=== PATIENT | female | born 1970 | race Caucasian/White ===

== ENCOUNTER 2017-01-22 15:56 | Inpatient (IN) | payer MEDICARE, MEDICAID ==
[~2017-01-22] VITALS: Ht 165.1 cm; Wt 66.4 kg
[~2017-01-22 15:56] MED LIST: BUSP5TAB20 PO; OLAN15TA2 PO
[2017-01-22 17:17] LABS: BASOPHILS % (AUTO) 0.6 % (0.0-2.0); EOSINOPHILS % (AUTO) 0.6 % (1.0-6.0); HEMATOCRIT 29.6 % (36-46); HEMOGLOBIN 9.8 g/dL (12.0-16.0); LYMPHOCYTES # (AUTO) 0.5 K/uL (1.0-4.8); LYMPHOCYTES % (AUTO) 11.7 % (22.0-44.0); MEAN CORPUSCULAR HEMOGLOBIN 25.7 pg (26.0-34.0); MEAN CORPUSCULAR HGB CONC 33.2 G/dL (31.0-37.0); MEAN CORPUSCULAR VOLUME 78 fL (80-100); MONOCYTES # (AUTO) 0.4 K/uL (0.1-1.0); MONOCYTES % (AUTO) 9.3 % (2.0-9.0); NEUTROPHILS # (AUTO) 3.4 K/uL (1.8-7.7); NEUTROPHILS % (AUTO) 77.8 % (40.0-70.0); PLATELET COUNT (AUTO) 392 K/uL (150-450); RED BLOOD CELL COUNT(AUTO) 3.81 MIL/uL (4.00-5.20); RED CELL DISTRIBUTION WIDTH 14.8 % (11.5-14.5); WHITE BLOOD COUNT (AUTO) 4.3 K/uL (4.5-11.0)
[2017-01-22 17:26] LABS: ANION GAP 9 mmol/L (8-16); CALCIUM, TOTAL 8.9 mg/dL (8.8-10.5); CARBON DIOXIDE 26 mmol/L (22-29); CHLORIDE 100 mmol/L (98-107); CREATININE 0.81 mg/dL (0.60-1.30); GLOMERULAR FILTR. RATE CALC > 60 mL/min (>60); POTASSIUM 3.5 mmol/L (3.5-5.1); SODIUM SERUM 135 mmol/L (136-145); UREA NITROGEN, BLOOD 4 mg/dL (7-18)
[2017-01-22 17:32] LABS: ALANINE AMINOTRANSFERASE 46 U/L (12-78); ALBUMIN 3.2 g/dL (3.4-5.0); ASPARTATE AMINOTRANSFERASE 51 U/L (15-37); BILIRUBIN,TOTAL 0.3 mg/dL (0.1-1.0); TOTAL PROTEIN, SERUM 7.3 g/dL (6.4-8.2)
[2017-01-22 17:37] LABS: GLUCOSE,POINT OF CARE 112 MG/DL (70-110)
[2017-01-22 18:04] LABS: RBC MORPHOLOGY COMMENT ABNORMAL RBC MORPH
[2017-01-22] MEDS ORDERED: ZOLPIDEM TARTRATE 10 MG TABLET PO PRN (20:15)
[2017-01-22] MEDS ORDERED: OLANZapine 5 MG RAPDIS TABLET PO PRN (20:15)
[2017-01-22] MEDS ORDERED: LORazepam 2 MG TABLET PO PRN (20:15)
[2017-01-22] MEDS: OLANZapine 5 MG RAPDIS TABLET PO SCH (20:52)
[2017-01-23 00:31] VITALS: BP 108/68
[2017-01-23] MEDS ORDERED: INFLUENZA VIRUS VACCINE QVS 2017-18 (3YR+)/PF 60 MCG/0.5 ML SYRINGE IM ONE (04:15)
[2017-01-23] MEDS ORDERED: PNEUMOCOCCAL VACCINE POLYVALENT 0.5 ML VIAL [PPSV23] IM ONE (04:15)
[2017-01-23 05:48] LABS: GLUCOSE,POINT OF CARE 110 MG/DL (70-110)
[2017-01-23] MEDS ORDERED: ACETAMINOPHEN 325 MG TABLET PO PRN ×2 (06:00→13:45)
[2017-01-23] MEDS ORDERED: ONDANSETRON HCL 4 MG TABLET PO PRN (06:00)
[2017-01-23 08:23] VITALS: BP 115/63
[2017-01-23 08:25] LABS: HEMOGLOBIN A1C 5.9 % (4.5-6.2)
[2017-01-23] MEDS: NICOTINE 7 MG/24 HOUR PATCH TD SCH (08:32)
[2017-01-23 09:07] LABS: CHOL/HDL RATIO 2.3 (3.9-5.7); THYROID STIMULATING HORMONE 2.74 uIU/mL (0.36-3.74)
[2017-01-23] MEDS ORDERED: MAG HYDROX/AL HYDROX/SIMETH ES 30 ML SUSPENSION UDCUP PO PRN (13:45)
[2017-01-23] MEDS ORDERED: GuaiFENesin/D-METHORPHAN [SUGAR-FREE] 200-20MG/10 ML SYRUP UDCUP PO PRN (13:45)
[2017-01-23] MEDS ORDERED: HydrOXYzine PAMOATE 50 MG CAPSULE PO PRN (13:45)
[2017-01-23] MEDS ORDERED: MAGNESIUM HYDROXIDE SUSPENSION 30 ML UDCUP PO PRN (13:45)
[2017-01-23] MEDS ORDERED: PROMETHAZINE HCL 25 MG TABLET PO PRN (13:45)
[2017-01-23] MEDS ORDERED: LOPERAMIDE HCL 2 MG CAPSULE PO PRN (13:45)
[2017-01-23] MEDS ORDERED: TUBERCULIN, PURIFIED PROTEIN DERIVATIVE 5 TU/0.1 ML SYG ID ONE (13:45)
[2017-01-23 16:13] VITALS: BP 106/60
[2017-01-23] MEDS: THIAMINE HCL 100 MG TABLET PO SCH (16:37)
[2017-01-23] MEDS: OLANZapine 5 MG RAPDIS TABLET PO SCH (21:00)
[2017-01-23] MEDS: DIVALPROEX SODIUM 250 MG ER TABLET PO SCH (21:00)
[2017-01-24 05:28] LABS: GLUCOSE,POINT OF CARE 95 MG/DL (70-110)
[2017-01-24 06:19] VITALS: BP 117/62
[2017-01-24 08:18] VITALS: BP 111/65
[2017-01-24] MEDS: FOLIC ACID 1 MG TABLET PO SCH (09:00)
[2017-01-24] MEDS: NICOTINE 7 MG/24 HOUR PATCH TD SCH (09:00)
[2017-01-24] MEDS: MULTIVITAMINS WITH MINERALS, THERAPEUTIC TABLET PO SCH (09:00)
[2017-01-24] MEDS: THIAMINE HCL 100 MG TABLET PO SCH ×2 (09:00→16:27)
[2017-01-24 16:08] VITALS: BP 106/63
[2017-01-24] MEDS: OLANZapine 5 MG RAPDIS TABLET PO SCH (21:00)
[2017-01-24] MEDS: DIVALPROEX SODIUM 250 MG ER TABLET PO SCH (21:00)
[2017-01-25 06:11] VITALS: BP 113/64
[2017-01-25 08:15] VITALS: BP 107/67
[2017-01-25] MEDS: FOLIC ACID 1 MG TABLET PO SCH (09:00)
[2017-01-25] MEDS: MULTIVITAMINS WITH MINERALS, THERAPEUTIC TABLET PO SCH (09:00)
[2017-01-25] MEDS: THIAMINE HCL 100 MG TABLET PO SCH ×2 (09:00→16:38)
[2017-01-25] MEDS: NICOTINE 7 MG/24 HOUR PATCH TD SCH (09:00)
[2017-01-25 16:31] VITALS: BP 122/78
[2017-01-25] MEDS: DIVALPROEX SODIUM 250 MG ER TABLET PO SCH (20:46)
[2017-01-25] MEDS: OLANZapine 5 MG RAPDIS TABLET PO SCH (20:46)
[2017-01-26 06:37] VITALS: BP 113/60
[2017-01-26 08:00] VITALS: BP 103/59
[2017-01-26] MEDS: THIAMINE HCL 100 MG TABLET PO SCH ×2 (09:00→17:00)
[2017-01-26] MEDS: FOLIC ACID 1 MG TABLET PO SCH (09:00)
[2017-01-26] MEDS: NICOTINE 7 MG/24 HOUR PATCH TD SCH (09:00)
[2017-01-26] MEDS: MULTIVITAMINS WITH MINERALS, THERAPEUTIC TABLET PO SCH (09:00)
[2017-01-26 16:08] VITALS: BP 108/62
[2017-01-26] MEDS: OLANZapine 5 MG RAPDIS TABLET PO SCH (21:00)
[2017-01-26] MEDS: DIVALPROEX SODIUM 250 MG ER TABLET PO SCH (21:00)
[2017-01-27 06:36] VITALS: BP 111/64
[2017-01-27 08:43] VITALS: BP 102/63
[2017-01-27] MEDS: FOLIC ACID 1 MG TABLET PO SCH (09:00)
[2017-01-27] MEDS: MULTIVITAMINS WITH MINERALS, THERAPEUTIC TABLET PO SCH (09:00)
[2017-01-27] MEDS: NICOTINE 7 MG/24 HOUR PATCH TD SCH (09:00)
[2017-01-27] MEDS: THIAMINE HCL 100 MG TABLET PO SCH ×2 (09:00→17:00)
[2017-01-27 16:42] VITALS: BP_SYST 100; BP_SYST 116; BP_DIAS 63; BP_DIAS 82
[2017-01-27] MEDS: OLANZapine 5 MG RAPDIS TABLET PO SCH (21:00)
[2017-01-27] MEDS: DIVALPROEX SODIUM 250 MG ER TABLET PO SCH (21:00)
[2017-01-28 06:37] VITALS: BP 103/63
[2017-01-28 08:38] VITALS: BP 102/60
[2017-01-28] MEDS: THIAMINE HCL 100 MG TABLET PO SCH ×2 (09:00→17:00)
[2017-01-28] MEDS: MULTIVITAMINS WITH MINERALS, THERAPEUTIC TABLET PO SCH (09:00)
[2017-01-28] MEDS: FOLIC ACID 1 MG TABLET PO SCH (09:00)
[2017-01-28] MEDS: NICOTINE 7 MG/24 HOUR PATCH TD SCH (09:00)
[2017-01-28 16:10] VITALS: BP 112/64
[2017-01-28] MEDS: DIVALPROEX SODIUM 250 MG ER TABLET PO SCH (21:00)
[2017-01-28] MEDS: OLANZapine 5 MG RAPDIS TABLET PO SCH (21:00)
[2017-01-29 06:17] VITALS: BP 101/59
[2017-01-29] MEDS: MULTIVITAMINS WITH MINERALS, THERAPEUTIC TABLET PO SCH (09:00)
[2017-01-29] MEDS: THIAMINE HCL 100 MG TABLET PO SCH ×2 (09:00→17:00)
[2017-01-29] MEDS: FOLIC ACID 1 MG TABLET PO SCH (09:00)
[2017-01-29] MEDS: NICOTINE 7 MG/24 HOUR PATCH TD SCH (09:00)
[2017-01-29 10:31] VITALS: BP 105/63
[2017-01-29 16:09] VITALS: BP 110/60
[2017-01-29] MEDS: OLANZapine 5 MG RAPDIS TABLET PO SCH (21:00)
[2017-01-29] MEDS: DIVALPROEX SODIUM 250 MG ER TABLET PO SCH (21:00)
[2017-01-30 06:04] VITALS: BP 117/70
[2017-01-30 08:29] VITALS: BP 122/76
[2017-01-30] MEDS: MULTIVITAMINS WITH MINERALS, THERAPEUTIC TABLET PO SCH (09:00)
[2017-01-30] MEDS: FOLIC ACID 1 MG TABLET PO SCH (09:00)
[2017-01-30] MEDS: NICOTINE 7 MG/24 HOUR PATCH TD SCH (09:00)
[2017-01-30] MEDS: THIAMINE HCL 100 MG TABLET PO SCH (09:00)
[2017-01-30] MEDS ORDERED: DIVA500T52 PO ×2 (09:55)
[2017-01-30] MEDS ORDERED: OLAN5TAB40 PO (09:56)
== END 2017-01-30 10:46 | disposition home or self-care (01) | DRG 885 ==
LOC: EMS 15:57 → B2X 20:48
PROVIDERS: ADMIT Psychiatry & Neurology Psychiatry; ATTEND Psychiatry & Neurology Psychiatry
DX: F25.0 Schizoaffective disorder, bipolar type (principal); E87.1 Hypo-osmolality and hyponatremia; E11.9 Type 2 diabetes mellitus without complications; F22 Delusional disorders; D64.9 Anemia, unspecified; D72.819 Decreased white blood cell count, unspecified; F17.210 Nicotine dependence, cigarettes, uncomplicated; R74.0 Nonspecific elevation of levels of transaminase and lactic acid dehydrogenase [LDH]; F43.10 Post-traumatic stress disorder, unspecified; G47.00 Insomnia, unspecified; Z65.3 Problems related to other legal circumstances; Z79.899 Other long term (current) drug therapy; Z91.19 Patient's noncompliance with other medical treatment and regimen; Z28.21 Immunization not carried out because of patient refusal
CPT/HCPCS: 82962; 83036; 84439; 84443; 99285; G0480; Q0162

== ENCOUNTER 2017-05-17 10:10 | Emergency (ER) | payer MEDICARE, MEDICAID ==
[~2017-05-17] VITALS: Ht 162.6 cm; Wt 61.4 kg
[~2017-05-17 10:10] MED LIST changes: -BUSP5TAB20 PO; +DIVA500T52 PO; -OLAN15TA2 PO; +OLAN5TAB40 PO
[2017-05-17 10:37] VITALS: BP 114/72
[2017-05-17 10:42] LABS: BASOPHILS % (AUTO) 1.7 % (0.0-2.0); EOSINOPHILS % (AUTO) 4.7 % (1.0-6.0); HEMATOCRIT 28.5 % (36-46); HEMOGLOBIN 8.8 g/dL (12.0-16.0); LYMPHOCYTES # (AUTO) 1.2 K/uL (1.0-4.8); LYMPHOCYTES % (AUTO) 36.7 % (22.0-44.0); MEAN CORPUSCULAR HEMOGLOBIN 21.3 pg (26.0-34.0); MEAN CORPUSCULAR HGB CONC 30.8 G/dL (31.0-37.0); MEAN CORPUSCULAR VOLUME 69 fL (80-100); MONOCYTES # (AUTO) 0.2 K/uL (0.1-1.0); MONOCYTES % (AUTO) 7.2 % (2.0-9.0); NEUTROPHILS # (AUTO) 1.7 K/uL (1.8-7.7); NEUTROPHILS % (AUTO) 49.7 % (40.0-70.0); PLATELET COUNT (AUTO) 293 K/uL (150-450); RED BLOOD CELL COUNT(AUTO) 4.13 MIL/uL (4.00-5.20); RED CELL DISTRIBUTION WIDTH 17.3 % (11.5-14.5)
[2017-05-17 10:52] LABS: ANION GAP 9 mmol/L (8-16); CALCIUM, TOTAL 8.6 mg/dL (8.8-10.5); CARBON DIOXIDE 27 mmol/L (22-29); CHLORIDE 106 mmol/L (98-107); CREATININE 0.59 mg/dL (0.60-1.30); GLOMERULAR FILTR. RATE CALC > 60 mL/min (>60); GLUCOSE,RANDOM 115 mg/dL (70-110); POTASSIUM 4.4 mmol/L (3.5-5.1); SODIUM SERUM 142 mmol/L (136-145); UREA NITROGEN, BLOOD 2 mg/dL (7-18)
[2017-05-17 10:55] LABS: ALANINE AMINOTRANSFERASE 18 U/L (12-78); ALBUMIN 3.4 g/dL (3.4-5.0); ALKALINE PHOSPHATASE 59 U/L (46-116); ASPARTATE AMINOTRANSFERASE 13 U/L (15-37); BILIRUBIN,TOTAL 0.2 mg/dL (0.1-1.0); TOTAL PROTEIN, SERUM 7.1 g/dL (6.4-8.2)
[2017-05-17 11:00] LABS: BILIRUBIN,URINE NEGATIVE (NEGATIVE); GLUCOSE, URINE (UA) NEGATIVE (NEGATIVE); KETONES,URINE NEGATIVE (NEGATIVE); LEUKOCYTE ESTERASE ,URINE NEGATIVE (NEGATIVE); NITRATE,URINE NEGATIVE (NEGATIVE); OCCULT BLOOD,URINE NEGATIVE (NEGATIVE); PROTEIN,URINE NEGATIVE (NEGATIVE); UROBILINOGEN,URINE 0.2 mg/dL (<=1.0)
[2017-05-17 11:10] LABS: APPEARANCE,URINE CLEAR (CLEAR)
[2017-05-17 11:19] LABS: BENZODIAZEPINES SCREEN,URINE NEGATIVE (NEGATIVE); CANNABINOID SCREEN,URINE NEGATIVE (NEGATIVE); COCAINE SCREEN,URINE NEGATIVE (NEGATIVE); METHADONE SCREEN, URINE NEGATIVE (NEGATIVE); OPIATE SCREEN,URINE NEGATIVE (NEGATIVE)
[2017-05-17 11:28] LABS: AMPHET/METH SCREEN,URINE NEGATIVE (NEGATIVE); BARBITURATE SCREEN, URINE NEGATIVE (NEGATIVE)
[2017-05-17 11:30] LABS: PHENCYCLIDINE SCREEN,URINE NEGATIVE (NEGATIVE)
== END 2017-05-17 12:01 | disposition home or self-care (01) ==
LOC: EMS 10:11
DX: F31.9 Bipolar disorder, unspecified (principal); F17.210 Nicotine dependence, cigarettes, uncomplicated; E11.9 Type 2 diabetes mellitus without complications; F20.9 Schizophrenia, unspecified; Z59.0 Homelessness
CPT/HCPCS: 36415; 80053; 80307; 81003; 85025; 99285; 99406; G0480

== ENCOUNTER 2018-04-16 13:03 | Emergency (ER) | payer MEDICARE, MEDICAID ==
[~2018-04-16] VITALS: Ht 162.6 cm; Wt 66.8 kg
[2018-04-16 14:22] LABS: EOSINOPHILS % (AUTO) 0.9 % (1.0-6.0); HEMOGLOBIN 14.5 g/dL (12.0-16.0); LYMPHOCYTES # (AUTO) 1.4 K/uL (1.0-4.8); LYMPHOCYTES % (AUTO) 25.6 % (22.0-44.0); MEAN CORPUSCULAR HEMOGLOBIN 31.4 pg (26.0-34.0); MEAN CORPUSCULAR HGB CONC 33.7 G/dL (31.0-37.0); MEAN CORPUSCULAR VOLUME 93 fL (80-100); MONOCYTES # (AUTO) 0.3 K/uL (0.1-1.0); MONOCYTES % (AUTO) 5.7 % (2.0-9.0); NEUTROPHILS # (AUTO) 3.6 K/uL (1.8-7.7); NEUTROPHILS % (AUTO) 66.8 % (40.0-70.0); PLATELET COUNT (AUTO) 343 K/uL (150-450); RED BLOOD CELL COUNT(AUTO) 4.62 MIL/uL (4.00-5.20); RED CELL DISTRIBUTION WIDTH 13.3 % (11.5-14.5)
[2018-04-16 14:31] LABS: AMPHET/METH SCREEN,URINE NEGATIVE (NEGATIVE); BARBITURATE SCREEN, URINE NEGATIVE (NEGATIVE); BENZODIAZEPINES SCREEN,URINE NEGATIVE (NEGATIVE); CANNABINOID SCREEN,URINE NEGATIVE (NEGATIVE); COCAINE SCREEN,URINE NEGATIVE (NEGATIVE); METHADONE SCREEN, URINE NEGATIVE (NEGATIVE); OPIATE SCREEN,URINE NEGATIVE (NEGATIVE)
[2018-04-16 14:33] LABS: ANION GAP 13 mmol/L (8-16); CALCIUM, TOTAL 8.4 mg/dL (8.8-10.5); CARBON DIOXIDE 20 mmol/L (22-29); CHLORIDE 102 mmol/L (98-107); CREATININE 0.64 mg/dL (0.60-1.30); GLOMERULAR FILTR. RATE CALC > 60 mL/min (>60); GLUCOSE,RANDOM 102 mg/dL (70-110); POTASSIUM 3.2 mmol/L (3.5-5.1); SODIUM SERUM 135 mmol/L (136-145); UREA NITROGEN, BLOOD 7 mg/dL (7-18)
[2018-04-16 14:37] LABS: PHENCYCLIDINE SCREEN,URINE NEGATIVE (NEGATIVE)
[2018-04-16 14:39] LABS: ALANINE AMINOTRANSFERASE 20 U/L (12-78); ALBUMIN 3.5 g/dL (3.4-5.0); ALKALINE PHOSPHATASE 51 U/L (46-116); ASPARTATE AMINOTRANSFERASE 16 U/L (15-37); BILIRUBIN,TOTAL 0.2 mg/dL (0.1-1.0); TOTAL PROTEIN, SERUM 6.9 g/dL (6.4-8.2)
[2018-04-16 14:40] LABS: VALPROIC ACID < 3 mcg/mL (50-100)
[2018-04-16] MEDS ORDERED: POTASSIUM CHLORIDE 20 MEQ ER TABLET PO ONE (15:30)
[2018-04-16] MEDS ORDERED: DIVA250T45 PO (15:31)
[2018-04-16] MEDS ORDERED: LURA20TA PO (18:12)
[2018-04-16] MEDS ORDERED: IPRATROPIUM BROMIDE 0.5 MG/2.5 ML NEB SOLUTION NEB ONE (19:00)
[2018-04-16] MEDS ORDERED: ALBUTEROL SULFATE 2.5 MG/0.5 ML NEB SOLUTION NEB ONE (19:00)
[2018-04-16 19:03] VITALS: BP 128/70
== END 2018-04-16 19:43 | disposition home or self-care (01) ==
LOC: EMS 13:03
DX: F20.9 Schizophrenia, unspecified (principal); F10.129 Alcohol abuse with intoxication, unspecified; F31.9 Bipolar disorder, unspecified; E11.9 Type 2 diabetes mellitus without complications; F17.210 Nicotine dependence, cigarettes, uncomplicated; Y90.8 Blood alcohol level of 240 mg/100 ml or more
CPT/HCPCS: 36415; 80053; 80164; 80307; 85025; 99285; G0480

== ENCOUNTER 2021-06-08 17:25 | Inpatient (IN) | payer MEDICARE, MEDICAID ==
[~2021-06-08] VITALS: Ht 172.7 cm; Wt 68.7 kg
[~2021-06-08 17:25] MED LIST changes: +DIVA-85 PO; -DIVA500T52 PO; +LURA20TA PO; -OLAN5TAB40 PO
[2021-06-08 18:07] LABS: BASOPHILS % (AUTO) 0.9 % (0.0-2.0); HEMATOCRIT 35.8 % (36-46); HEMOGLOBIN 12.2 g/dL (12.0-16.0); LYMPHOCYTES # (AUTO) 1.2 K/uL (1.0-4.8); LYMPHOCYTES % (AUTO) 33.4 % (22.0-44.0); MEAN CORPUSCULAR HEMOGLOBIN 31.6 pg (26.0-34.0); MEAN CORPUSCULAR VOLUME 93 fL (80-100); MONOCYTES # (AUTO) 0.2 K/uL (0.1-1.0); MONOCYTES % (AUTO) 6.9 % (2.0-9.0); NEUTROPHILS # (AUTO) 2.1 K/uL (1.8-7.7); NEUTROPHILS % (AUTO) 57.8 % (40.0-70.0); PLATELET COUNT (AUTO) 221 K/uL (150-450); RED BLOOD CELL COUNT(AUTO) 3.85 MIL/uL (4.00-5.20); RED CELL DISTRIBUTION WIDTH 15.2 % (11.5-14.5)
[2021-06-08 18:21] LABS: INR 1.6 (0.9-1.1); PROTHROMBIN TIME 16.7 SEC (9.4-11.6)
[2021-06-08 18:29] LABS: B-TYPE NATRIURETIC PEPTIDE 80 pg/mL (0-100)
[2021-06-08 18:37] LABS: SALICYLATE 65.6 mg/dL (2.8-20.0)
[2021-06-08 18:41] LABS: ALANINE AMINOTRANSFERASE 26 U/L (12-78); ALBUMIN 3.8 g/dL (3.4-5.0); ALKALINE PHOSPHATASE 52 U/L (46-116); ANION GAP 18 mmol/L (8-16); ASPARTATE AMINOTRANSFERASE 38 U/L (15-37); BILIRUBIN,TOTAL 0.4 mg/dL (0.1-1.0); CALCIUM, TOTAL 8.4 mg/dL (8.8-10.5); CARBON DIOXIDE 17 mmol/L (22-29); CHLORIDE 100 mmol/L (98-107); CREATINE KINASE, TOTAL ONLY 630 U/L (26-192); GLOMERULAR FILTR. RATE CALC 52 mL/min (>60); GLUCOSE,RANDOM 95 mg/dL (70-110); HCG,QUANTITATIVE 3 mIU/mL (0-6); SODIUM SERUM 135 mmol/L (136-145); TOTAL PROTEIN, SERUM 7.4 g/dL (6.4-8.2); UREA NITROGEN, BLOOD 17 mg/dL (7-18)
[2021-06-08 18:43] LABS: ACETAMINOPHEN < 2 mcg/mL (10-30); POTASSIUM 2.9 mmol/L (3.5-5.1)
[2021-06-08] MEDS ORDERED: POTASSIUM CHLORIDE 20 MEQ ER TABLET PO ONE (18:45)
[2021-06-08] MEDS ORDERED: SODIUM CHLORIDE 0.9% 1,000 ML IV ONE ×2 (19:00→23:00)
[2021-06-08 19:16] LABS: ABG BASE EXCESS -10.1 mmol/L (-2.0-3.0); ABG CARBOXYHEMOGLOBIN 0.3 % (0.0-1.5); ABG HCO3 18.1 mmol/L (22.0-26.0); ABG OXYGEN CONTENT 16.5 mL/dL (15.0-23.0); ABG OXYGEN SATURATION 98.7 % (95.0-98.0); ABG OXYHEMOGLOBIN 98.4 % (94.0-100.0); ABG PH 7.476 (7.35-7.450); ABG TOTAL HEMOGLOBIN 11.7 G/dL (12.0-18.0); PO2, ARTERIAL BG 158.8 mmHg (84.0-92.0); SOURCE, BLOOD GAS ARTERIAL; TEMPERATURE, FAHRENHEIT, BG 98.6 FAHREN (96.0-98.6)
[2021-06-08 19:17] LABS: ABG PCO2 19 mmHg (35-45); O2 DEVICE,BLOOD GAS ROOM AIR (ROOM AIR); SITE, BLOOD GAS LFT RADIAL
[2021-06-08] MEDS ORDERED: SODIUM BICARBONATE IV ONE (19:30)
[2021-06-08] MEDS ORDERED: POTASSIUM CHLORIDE IV ONE (19:30)
[2021-06-08] MEDS ORDERED: DEXTROSE 5% IV ONE (19:30)
[2021-06-08] MEDS ORDERED: WATER IV ONE (19:30)
[2021-06-08] MEDS ORDERED: POTASSIUM CHL 10 MEQ/WATER 50 ML IV ONE (20:30)
[2021-06-08 20:32] LABS: ANION GAP 15 mmol/L (8-16); CALCIUM, TOTAL 7.9 mg/dL (8.8-10.5); CARBON DIOXIDE 20 mmol/L (22-29); CHLORIDE 102 mmol/L (98-107); CREATININE 0.89 mg/dL (0.60-1.30); GLOMERULAR FILTR. RATE CALC > 60 mL/min (>60); GLUCOSE,RANDOM 74 mg/dL (70-110); POTASSIUM 3.5 mmol/L (3.5-5.1); SODIUM SERUM 137 mmol/L (136-145); UREA NITROGEN, BLOOD 16 mg/dL (7-18)
[2021-06-08 20:39] LABS: SALICYLATE 61.4 mg/dL (2.8-20.0)
[2021-06-08 21:15] LABS: COVID AG,FIA SOURCE NASAL SWAB
[2021-06-08 21:19] LABS: APPEARANCE,URINE CLEAR (CLEAR); BILIRUBIN,URINE NEGATIVE (NEGATIVE); GLUCOSE, URINE (UA) NEGATIVE (NEGATIVE); KETONES,URINE 80-100 mg/dL (NEGATIVE); LEUKOCYTE ESTERASE ,URINE LARGE (NEGATIVE); NITRATE,URINE NEGATIVE (NEGATIVE); OCCULT BLOOD,URINE NEGATIVE (NEGATIVE); PROTEIN,URINE TRACE mg/dL (NEGATIVE); SPECIFIC GRAVITIY, URINE 1.016 (1.003-1.030); UROBILINOGEN,URINE <=1.0 mg/dL (<=1.0)
[2021-06-08 21:28] LABS: AMPHET/METH SCREEN,URINE NEGATIVE (NEGATIVE); BARBITURATE SCREEN, URINE NEGATIVE (NEGATIVE); BENZODIAZEPINES SCREEN,URINE NEGATIVE (NEGATIVE); CANNABINOID SCREEN,URINE NEGATIVE (NEGATIVE); COCAINE SCREEN,URINE NEGATIVE (NEGATIVE); METHADONE SCREEN, URINE NEGATIVE (NEGATIVE); OPIATE SCREEN,URINE NEGATIVE (NEGATIVE); PHENCYCLIDINE SCREEN,URINE NEGATIVE (NEGATIVE)
[2021-06-08 21:34] LABS: RBC,URINE 0-2 /HPF (0-2)
[2021-06-08 21:35] LABS: BACTERIA,URINE Rare /HPF (None Seen); SQUAMOUS EPITHELIAL CELL,UR Rare /LPF (None Seen)
[2021-06-08 21:47] LABS: ABG BASE EXCESS -6.2 mmol/L (-2.0-3.0); ABG CARBOXYHEMOGLOBIN 0.3 % (0.0-1.5); ABG HCO3 20.3 mmol/L (22.0-26.0); ABG METHEMOGLOBIN 0.1 % (0.0-1.5); ABG OXYGEN SATURATION 97.1 % (95.0-98.0); ABG OXYHEMOGLOBIN 96.7 % (94.0-100.0); ABG PCO2 29 mmHg (35-45); ABG PH 7.421 (7.35-7.450); ABG TOTAL HEMOGLOBIN 11.7 G/dL (12.0-18.0); PO2, ARTERIAL BG 94.4 mmHg (84.0-92.0); SOURCE, BLOOD GAS ARTERIAL; TEMPERATURE, FAHRENHEIT, BG 98.6 FAHREN (96.0-98.6)
[2021-06-08 21:48] LABS: O2 DEVICE,BLOOD GAS ROOM AIR (ROOM AIR); SITE, BLOOD GAS LFT RADIAL
[2021-06-08 22:00] LABS: CALCIUM, TOTAL 7.9 mg/dL (8.8-10.5); CREATININE 0.98 mg/dL (0.60-1.30); POTASSIUM 3.2 mmol/L (3.5-5.1)
[2021-06-08] MEDS ORDERED: POTASSIUM CHLORIDE 20 MEQ ER TABLET PO PRN (22:00)
[2021-06-08] MEDS ORDERED: ONDANSETRON HCL 4 MG/2 ML VIAL IVP PRN (22:00)
[2021-06-08 22:14] LABS: SALICYLATE 58.6 mg/dL (2.8-20.0)
[2021-06-08] MEDS: POTASSIUM CHL 10 MEQ/WATER 50 ML IV PRN (23:54)
[2021-06-08] MEDS: PANTOPRAZOLE SODIUM 40 MG/VIAL IVP SCH (23:54)
[2021-06-08] MEDS: HEPARIN SODIUM,PORCINE 5,000 UNITS/ML VIAL SQ SCH (23:54)
[2021-06-09 00:32] LABS: ANION GAP 18 mmol/L (8-16); CALCIUM, TOTAL 7.4 mg/dL (8.8-10.5); CARBON DIOXIDE 20 mmol/L (22-29); CHLORIDE 104 mmol/L (98-107); CREATININE 0.85 mg/dL (0.60-1.30); GLOMERULAR FILTR. RATE CALC > 60 mL/min (>60); GLUCOSE,RANDOM 68 mg/dL (70-110); POTASSIUM 3.2 mmol/L (3.5-5.1); SODIUM SERUM 142 mmol/L (136-145); UREA NITROGEN, BLOOD 15 mg/dL (7-18)
[2021-06-09 00:50] LABS: SALICYLATE 53.8 mg/dL (2.8-20.0)
[2021-06-09] MEDS: POTASSIUM CHL 10 MEQ/WATER 50 ML IV PRN ×3 (01:07→23:23)
[2021-06-09 01:38] LABS: ABG CARBOXYHEMOGLOBIN 0.3 % (0.0-1.5); ABG HCO3 18.1 mmol/L (22.0-26.0); ABG METHEMOGLOBIN 0.3 % (0.0-1.5); ABG OXYGEN CONTENT 14.2 mL/dL (15.0-23.0); ABG OXYGEN SATURATION 95.8 % (95.0-98.0); ABG OXYHEMOGLOBIN 95.2 % (94.0-100.0); ABG PCO2 28 mmHg (35-45); ABG PH 7.379 (7.35-7.450); ABG TOTAL HEMOGLOBIN 10.5 G/dL (12.0-18.0); O2 DEVICE,BLOOD GAS ROOM AIR (ROOM AIR); PO2, ARTERIAL BG 85.3 mmHg (84.0-92.0); SITE, BLOOD GAS LFT RADIAL; SOURCE, BLOOD GAS ARTERIAL; TEMPERATURE, FAHRENHEIT, BG 98.6 FAHREN (96.0-98.6)
[2021-06-09] MEDS: MIDODRINE HCL 5 MG TABLET PO SCH ×2 (03:41→22:52)
[2021-06-09 04:40] LABS: ANION GAP 12 mmol/L (8-16); CALCIUM, TOTAL 7.5 mg/dL (8.8-10.5); CARBON DIOXIDE 22 mmol/L (22-29); CHLORIDE 105 mmol/L (98-107); GLOMERULAR FILTR. RATE CALC > 60 mL/min (>60); GLUCOSE,RANDOM 93 mg/dL (70-110); POTASSIUM 3.6 mmol/L (3.5-5.1); SODIUM SERUM 139 mmol/L (136-145); UREA NITROGEN, BLOOD 13 mg/dL (7-18)
[2021-06-09 04:46] LABS: SALICYLATE 48.5 mg/dL (2.8-20.0)
[2021-06-09 06:24] LABS: ALANINE AMINOTRANSFERASE 22 U/L (12-78); ALBUMIN 3.1 g/dL (3.4-5.0); ALKALINE PHOSPHATASE 41 U/L (46-116); ASPARTATE AMINOTRANSFERASE 33 U/L (15-37); BILIRUBIN,TOTAL 0.3 mg/dL (0.1-1.0); TOTAL PROTEIN, SERUM 6.2 g/dL (6.4-8.2)
[2021-06-09] MEDS ORDERED: SODIUM BICARBONATE 150 MEQ in DEXTROSE 5%-WATER 1,000 ML IV ONE (07:45)
[2021-06-09] MEDS: HEPARIN SODIUM,PORCINE 5,000 UNITS/ML VIAL SQ SCH ×2 (08:21→16:02)
[2021-06-09 08:30] LABS: ANION GAP 11 mmol/L (8-16); CALCIUM, TOTAL 7.7 mg/dL (8.8-10.5); CARBON DIOXIDE 22 mmol/L (22-29); CHLORIDE 106 mmol/L (98-107); CREATININE 0.76 mg/dL (0.60-1.30); GLOMERULAR FILTR. RATE CALC > 60 mL/min (>60); GLUCOSE,RANDOM 127 mg/dL (70-110); POTASSIUM 3.6 mmol/L (3.5-5.1); SODIUM SERUM 139 mmol/L (136-145); UREA NITROGEN, BLOOD 12 mg/dL (7-18)
[2021-06-09] MEDS: DOCUSATE SODIUM 100 MG CAPSULE PO SCH ×2 (09:00→21:00)
[2021-06-09 09:01] VITALS: BP 103/54
[2021-06-09 09:16] LABS: ABG BASE EXCESS -2.1 mmol/L (-2.0-3.0); ABG CARBOXYHEMOGLOBIN 0.6 % (0.0-1.5); ABG HCO3 23.4 mmol/L (22.0-26.0); ABG METHEMOGLOBIN 0.2 % (0.0-1.5); ABG OXYGEN CONTENT 15.3 mL/dL (15.0-23.0); ABG OXYGEN SATURATION 97.1 % (95.0-98.0); ABG OXYHEMOGLOBIN 96.3 % (94.0-100.0); ABG PCO2 29 mmHg (35-45); ABG PH 7.486 (7.35-7.450); ABG TOTAL HEMOGLOBIN 11.2 G/dL (12.0-18.0); PO2, ARTERIAL BG 86.2 mmHg (84.0-92.0); SOURCE, BLOOD GAS ARTERIAL; TEMPERATURE, FAHRENHEIT, BG 98.6 FAHREN (96.0-98.6)
[2021-06-09 09:19] LABS: O2 DEVICE,BLOOD GAS ROOM AIR (ROOM AIR); SITE, BLOOD GAS LFT RADIAL
[2021-06-09 11:25] VITALS: BP 100/51
[2021-06-09] MEDS: PANTOPRAZOLE SODIUM 40 MG/VIAL IVP SCH ×2 (11:32→23:21)
[2021-06-09] MEDS ORDERED: MetroNIDAZOLE 500 MG TABLET PO ONE (13:00)
[2021-06-09] MEDS ORDERED: LORazepam 2 MG/ML VIAL IVP PRN (13:30)
[2021-06-09 13:57] LABS: ABG BASE EXCESS 0.9 mmol/L (-2.0-3.0); ABG CARBOXYHEMOGLOBIN 0.6 % (0.0-1.5); ABG HCO3 25.6 mmol/L (22.0-26.0); ABG METHEMOGLOBIN 0.3 % (0.0-1.5); ABG OXYGEN CONTENT 15.3 mL/dL (15.0-23.0); ABG OXYGEN SATURATION 95.9 % (95.0-98.0); ABG PCO2 33 mmHg (35-45); ABG PH 7.488 (7.35-7.450); ABG TOTAL HEMOGLOBIN 11.4 G/dL (12.0-18.0); PO2, ARTERIAL BG 75.8 mmHg (84.0-92.0); SOURCE, BLOOD GAS ARTERIAL; TEMPERATURE, FAHRENHEIT, BG 98.6 FAHREN (96.0-98.6)
[2021-06-09 13:58] LABS: O2 DEVICE,BLOOD GAS ROOM AIR (ROOM AIR); SITE, BLOOD GAS LFT RADIAL
[2021-06-09 14:18] LABS: ANION GAP 9 mmol/L (8-16); CARBON DIOXIDE 25 mmol/L (22-29); CHLORIDE 104 mmol/L (98-107); CREATININE 0.74 mg/dL (0.60-1.30); GLOMERULAR FILTR. RATE CALC > 60 mL/min (>60); GLUCOSE,RANDOM 144 mg/dL (70-110); SODIUM SERUM 138 mmol/L (136-145); UREA NITROGEN, BLOOD 8 mg/dL (7-18)
[2021-06-09] MEDS ORDERED: POTASSIUM CHLORIDE 20 MEQ ER TABLET PO ONE (16:45)
[2021-06-09 16:51] VITALS: BP 91/58
[2021-06-09] MEDS: POTASSIUM CHL 10 MEQ/WATER 50 ML IV SCH ×2 (17:17→18:16)
[2021-06-09] MEDS ORDERED: SODIUM CHLORIDE 0.9% 250 ML IV ONE ×2 (17:21→23:31)
[2021-06-09 19:33] VITALS: BP 92/55
[2021-06-09 19:54] LABS: ANION GAP 8 mmol/L (8-16); CALCIUM, TOTAL 8.2 mg/dL (8.8-10.5); CARBON DIOXIDE 28 mmol/L (22-29); CHLORIDE 105 mmol/L (98-107); CREATININE 0.67 mg/dL (0.60-1.30); GLOMERULAR FILTR. RATE CALC > 60 mL/min (>60); GLUCOSE,RANDOM 92 mg/dL (70-110); POTASSIUM 3.4 mmol/L (3.5-5.1); SODIUM SERUM 141 mmol/L (136-145); UREA NITROGEN, BLOOD 8 mg/dL (7-18)
[2021-06-09] MEDS: ACETAMINOPHEN 325 MG TABLET PO PRN (23:42)
[2021-06-09 23:46] VITALS: BP 92/57
[2021-06-10 00:39] LABS: ANION GAP 6 mmol/L (8-16); CALCIUM, TOTAL 8.4 mg/dL (8.8-10.5); CARBON DIOXIDE 27 mmol/L (22-29); CHLORIDE 107 mmol/L (98-107); CREATININE 0.66 mg/dL (0.60-1.30); GLOMERULAR FILTR. RATE CALC > 60 mL/min (>60); GLUCOSE,RANDOM 82 mg/dL (70-110); POTASSIUM 3.6 mmol/L (3.5-5.1); SODIUM SERUM 140 mmol/L (136-145); UREA NITROGEN, BLOOD 8 mg/dL (7-18)
[2021-06-10 00:47] LABS: SALICYLATE 23.4 mg/dL (2.8-20.0)
[2021-06-10] MEDS: HEPARIN SODIUM,PORCINE 5,000 UNITS/ML VIAL SQ SCH ×3 (01:03→15:24)
[2021-06-10] MEDS: POTASSIUM CHL 10 MEQ/WATER 50 ML IV PRN (01:04)
[2021-06-10 04:36] VITALS: BP 94/58
[2021-06-10 06:29] LABS: ANION GAP 5 mmol/L (8-16); CALCIUM, TOTAL 8.3 mg/dL (8.8-10.5); CARBON DIOXIDE 28 mmol/L (22-29); CHLORIDE 107 mmol/L (98-107); CREATININE 0.68 mg/dL (0.60-1.30); GLOMERULAR FILTR. RATE CALC > 60 mL/min (>60); GLUCOSE,RANDOM 80 mg/dL (70-110); POTASSIUM 3.7 mmol/L (3.5-5.1); SODIUM SERUM 140 mmol/L (136-145); UREA NITROGEN, BLOOD 6 mg/dL (7-18)
[2021-06-10 07:45] VITALS: BP 142/67
[2021-06-10] MEDS: DOCUSATE SODIUM 100 MG CAPSULE PO SCH ×2 (08:23→21:16)
[2021-06-10] MEDS: PANTOPRAZOLE SODIUM 40 MG/VIAL IVP SCH ×2 (08:24→21:16)
[2021-06-10] MEDS ORDERED: POTASSIUM PHOS,M-BASIC-D-BASIC 10 MEQ in DEXTROSE 5%-WATER 50 ML IV ONE (09:15)
[2021-06-10 09:32] LABS: APPEARANCE,URINE CLEAR (CLEAR); BILIRUBIN,URINE NEGATIVE (NEGATIVE); GLUCOSE, URINE (UA) NEGATIVE (NEGATIVE); KETONES,URINE TRACE mg/dL (NEGATIVE); LEUKOCYTE ESTERASE ,URINE MODERATE (NEGATIVE); NITRATE,URINE NEGATIVE (NEGATIVE); OCCULT BLOOD,URINE TRACE (NEGATIVE); PROTEIN,URINE TRACE mg/dL (NEGATIVE); UROBILINOGEN,URINE <=1.0 mg/dL (<=1.0)
[2021-06-10 09:45] LABS: BACTERIA,URINE None Seen /HPF (None Seen); RBC,URINE 0-2 /HPF (0-2); SQUAMOUS EPITHELIAL CELL,UR Few /LPF (None Seen); URIC ACID CRYSTALS,URINE Few /LPF (None Seen)
[2021-06-10] MEDS ORDERED: SODIUM BICARBONATE 50 MEQ in DEXTROSE 5%-0.45% SODIUM CHL 1,000 ML IV SCH (10:45)
[2021-06-10] MEDS: SODIUM,POTASSIUM PHOSPHATES POWDER PACKET PO SCH ×2 (11:59→21:16)
[2021-06-10] MEDS ORDERED: MAGNESIUM HYDROXIDE SUSPENSION 30 ML UDCUP PO PRN (13:00)
[2021-06-10 13:07] VITALS: BP 96/48
[2021-06-10 15:17] VITALS: BP 93/58
[2021-06-10 19:54] VITALS: BP 95/61
[2021-06-10] MEDS: ACETAMINOPHEN 325 MG TABLET PO PRN (21:16)
[2021-06-11] VITALS (7 sets, daily range): BP systolic 95–123; BP diastolic 60–73
[2021-06-11] MEDS: HEPARIN SODIUM,PORCINE 5,000 UNITS/ML VIAL SQ SCH ×4 (01:50→23:33)
[2021-06-11] MEDS: PANTOPRAZOLE SODIUM 40 MG/VIAL IVP SCH ×2 (08:00→20:56)
[2021-06-11] MEDS: ACETAMINOPHEN 325 MG TABLET PO PRN (08:00)
[2021-06-11] MEDS: DOCUSATE SODIUM 100 MG CAPSULE PO SCH ×2 (08:00→20:56)
[2021-06-11] MEDS ORDERED: TRAZ-252 PO (12:58)
[2021-06-11] MEDS ORDERED: OLAN5TAB52 PO (12:58)
[2021-06-12] MEDS: ACETAMINOPHEN 325 MG TABLET PO PRN ×3 (00:24→20:37)
[2021-06-12 04:49] VITALS: BP 114/73
[2021-06-12 07:45] VITALS: BP 129/79
[2021-06-12] MEDS: HEPARIN SODIUM,PORCINE 5,000 UNITS/ML VIAL SQ SCH ×3 (09:09→23:03)
[2021-06-12] MEDS: DOCUSATE SODIUM 100 MG CAPSULE PO SCH ×2 (09:10→20:35)
[2021-06-12] MEDS: PANTOPRAZOLE SODIUM 40 MG/VIAL IVP SCH (09:10)
[2021-06-12 16:09] VITALS: BP 130/83
[2021-06-12 19:40] VITALS: BP 121/71
[2021-06-12] MEDS: PANTOPRAZOLE SODIUM 40 MG DR TABLET PO SCH (22:10)
[2021-06-13 04:45] VITALS: BP 117/77
[2021-06-13] MEDS: ACETAMINOPHEN 325 MG TABLET PO PRN ×2 (06:11→14:17)
[2021-06-13 08:33] VITALS: BP 114/77
[2021-06-13] MEDS: PANTOPRAZOLE SODIUM 40 MG DR TABLET PO SCH ×2 (08:54→20:27)
[2021-06-13] MEDS: DOCUSATE SODIUM 100 MG CAPSULE PO SCH ×2 (08:54→20:27)
[2021-06-13] MEDS: DIVALPROEX SODIUM 500 MG DR TABLET PO SCH ×2 (08:54→20:29)
[2021-06-13] MEDS: HEPARIN SODIUM,PORCINE 5,000 UNITS/ML VIAL SQ SCH ×2 (08:54→16:06)
[2021-06-13 16:27] LABS: COVID AG,FIA SOURCE NASAL SWAB
[2021-06-13 16:55] VITALS: BP 120/74
[2021-06-13] MEDS ORDERED: DIVA-112 PO (17:41)
[2021-06-13] MEDS ORDERED: DOCU-385 PO (17:41)
[2021-06-13] MEDS ORDERED: OLAN7.5T22 PO (17:44)
[2021-06-13] MEDS ORDERED: ACET-2247 PO (17:45)
[2021-06-13] MEDS ORDERED: MAGN-160 PO (17:46)
[2021-06-13 20:30] VITALS: BP 123/71
[2021-06-13] MEDS ORDERED: OLANZapine 7.5 MG TABLET PO SCH (21:00)
== END 2021-06-13 20:46 | DRG 917 ==
LOC: EMS 17:25 → 5S 06-09 05:34 → 6S 06-09 08:05
PROVIDERS: ADMIT Internal Medicine; ATTEND Internal Medicine
DX: T39.091A Poisoning by salicylates, accidental (unintentional), initial encounter (principal); G92.8 Other toxic encephalopathy; E44.0 Moderate protein-calorie malnutrition; E87.6 Hypokalemia; Z20.822 Contact with and (suspected) exposure to COVID-19; E11.9 Type 2 diabetes mellitus without complications; E83.39 Other disorders of phosphorus metabolism; F25.9 Schizoaffective disorder, unspecified; F31.9 Bipolar disorder, unspecified; F43.10 Post-traumatic stress disorder, unspecified; T39.095A Adverse effect of salicylates, initial encounter; Z72.0 Tobacco use; Z79.899 Other long term (current) drug therapy; Z68.23 Body mass index [BMI] 23.0-23.9, adult; Y92.89 Other specified places as the place of occurrence of the external cause; Z71.6 Tobacco abuse counseling
CPT/HCPCS: 36600; 70450; 71045; 80048; 80053; 80076; 81001; 82009; 82010; 82550; 82693; 82805; 83605; 83735; 83880; 83930; 83935; 84100; 84484; 84702; 85025; 85610; 85730; 87086; 93005; 99291; C9113; G0480; G0481; J1644; J3480; J3490; J7030; J7050; J7060; 36415-L1; 36415-TC

== ENCOUNTER 2021-06-13 13:48 | Inpatient (IN) | payer MEDICARE, MEDICAID ==
[~2021-06-13] VITALS: Ht 167.6 cm; Wt 68.7 kg
[~2021-06-13 13:48] MED LIST changes: -DIVA-85 PO; -LURA20TA PO; +OLAN5TAB52 PO; +TRAZ-252 PO
[2021-06-13] MEDS ORDERED: HALOPERIDOL 5 MG TABLET PO PRN (16:30)
[2021-06-13] MEDS ORDERED: LORazepam 2 MG TABLET PO PRN (16:30)
[2021-06-13] MEDS ORDERED: ZOLPIDEM TARTRATE 10 MG TABLET PO PRN (16:30)
[2021-06-13] MEDS ORDERED: DIVA-112 PO (17:41)
[2021-06-13] MEDS ORDERED: DOCU-385 PO (17:41)
[2021-06-13] MEDS ORDERED: OLAN7.5T22 PO (17:44)
[2021-06-13] MEDS ORDERED: ACET-2247 PO (17:45)
[2021-06-13] MEDS ORDERED: MAGN-160 PO (17:46)
[2021-06-13] MEDS: DIVALPROEX SODIUM 500 MG DR TABLET PO SCH (21:22)
[2021-06-13] MEDS: OLANZapine 7.5 MG TABLET PO SCH (21:22)
[2021-06-13 21:27] VITALS: BP 103/66
[2021-06-14 06:34] VITALS: BP 115/72
[2021-06-14] MEDS ORDERED: LOPERAMIDE HCL 2 MG CAPSULE PO PRN (06:45)
[2021-06-14] MEDS ORDERED: ONDANSETRON HCL 4 MG TABLET PO PRN (06:45)
[2021-06-14] MEDS ORDERED: CloNIDine HCL 0.1 MG TABLET PO PRN (06:45)
[2021-06-14] MEDS ORDERED: OMEPRAZOLE 20 MG CAPSULE PO PRN (06:45)
[2021-06-14] MEDS ORDERED: PETROLATUM,WHITE 28 GM JELLY TP PRN (06:45)
[2021-06-14] MEDS ORDERED: BACITRACIN 28 GM OINTMENT TP PRN (06:45)
[2021-06-14] MEDS ORDERED: ALBUTEROL SULFATE HFA 90 MCG/PUFF 8 GM INHALER IH PRN (06:45)
[2021-06-14] MEDS ORDERED: BENZOCAINE/MENTHOL LOZENGE PO PRN (06:45)
[2021-06-14] MEDS ORDERED: MAGNESIUM HYDROXIDE SUSPENSION 30 ML UDCUP PO PRN (06:45)
[2021-06-14] MEDS ORDERED: DOCUSATE SODIUM 100 MG CAPSULE PO PRN (06:45)
[2021-06-14] MEDS ORDERED: MAG HYDROX/AL HYDROX/SIMETH ES 30 ML SUSPENSION UDCUP PO PRN (06:45)
[2021-06-14 07:48] VITALS: BP 102/57
[2021-06-14] MEDS: DIVALPROEX SODIUM 500 MG DR TABLET PO SCH ×2 (08:08→20:19)
[2021-06-14 08:14] LABS: BASOPHILS % (AUTO) 0.6 % (0.0-2.0); HEMATOCRIT 36.5 % (36-46); HEMOGLOBIN 12.2 g/dL (12.0-16.0); LYMPHOCYTES # (AUTO) 0.6 K/uL (1.0-4.8); LYMPHOCYTES % (AUTO) 18.4 % (22.0-44.0); MEAN CORPUSCULAR HEMOGLOBIN 31.7 pg (26.0-34.0); MEAN CORPUSCULAR HGB CONC 33.3 G/dL (31.0-37.0); MEAN CORPUSCULAR VOLUME 95 fL (80-100); MONOCYTES # (AUTO) 0.3 K/uL (0.1-1.0); MONOCYTES % (AUTO) 8.6 % (2.0-9.0); NEUTROPHILS # (AUTO) 2.3 K/uL (1.8-7.7); NEUTROPHILS % (AUTO) 69.4 % (40.0-70.0); PLATELET COUNT (AUTO) 180 K/uL (150-450); RED BLOOD CELL COUNT(AUTO) 3.83 MIL/uL (4.00-5.20); RED CELL DISTRIBUTION WIDTH 15.4 % (11.5-14.5)
[2021-06-14 08:25] LABS: HEMOGLOBIN A1C 5.6 % (3.8-5.6)
[2021-06-14 08:32] VITALS: BP 105/60
[2021-06-14 08:37] LABS: ALANINE AMINOTRANSFERASE 25 U/L (12-78); ALBUMIN 3.2 g/dL (3.4-5.0); ALKALINE PHOSPHATASE 55 U/L (46-116); ANION GAP 11 mmol/L (8-16); ASPARTATE AMINOTRANSFERASE 19 U/L (15-37); BILIRUBIN,TOTAL 0.3 mg/dL (0.1-1.0); CALCIUM, TOTAL 9.2 mg/dL (8.8-10.5); CARBON DIOXIDE 28 mmol/L (22-29); CHLORIDE 111 mmol/L (98-107); CHOL/HDL RATIO 2.6 (3.9-5.7); CHOLESTEROL 141 mg/dL (131-200); CREATININE 0.64 mg/dL (0.60-1.30); GLOMERULAR FILTR. RATE CALC > 60 mL/min (>60); GLUCOSE,RANDOM 78 mg/dL (70-110); HDL CHOLESTEROL 54 mg/dL (40-60); LDL CHOL (CALC.) 62 mg/dL (0-130); POTASSIUM 4.1 mmol/L (3.5-5.1); SODIUM SERUM 150 mmol/L (136-145); THYROID STIMULATING HORMONE 3.04 uIU/mL (0.36-3.74); TOTAL PROTEIN, SERUM 6.8 g/dL (6.4-8.2); TRIGLYCERIDES 125 mg/dL (15-150); UREA NITROGEN, BLOOD 5 mg/dL (7-18)
[2021-06-14] MEDS: ACETAMINOPHEN 325 MG TABLET PO PRN (15:49)
[2021-06-14 16:01] VITALS: BP 101/60
[2021-06-14] MEDS: OLANZapine 7.5 MG TABLET PO SCH (20:19)
[2021-06-15 05:05] VITALS: BP 105/62
[2021-06-15 08:12] VITALS: BP 100/62
[2021-06-15] MEDS: DIVALPROEX SODIUM 500 MG DR TABLET PO SCH ×2 (08:25→20:06)
[2021-06-15] MEDS: ACETAMINOPHEN 325 MG TABLET PO PRN ×2 (15:15→19:24)
[2021-06-15 16:11] VITALS: BP 109/60
[2021-06-15] MEDS: OLANZapine 7.5 MG TABLET PO SCH (20:07)
[2021-06-16 00:44] VITALS: BP 107/70
[2021-06-16 06:56] LABS: BASOPHILS % (AUTO) 1.3 % (0.0-2.0); EOSINOPHILS % (AUTO) 3.8 % (1.0-6.0); HEMATOCRIT 34.1 % (36-46); HEMOGLOBIN 11.6 g/dL (12.0-16.0); LYMPHOCYTES # (AUTO) 0.9 K/uL (1.0-4.8); LYMPHOCYTES % (AUTO) 33.8 % (22.0-44.0); MEAN CORPUSCULAR HEMOGLOBIN 32.1 pg (26.0-34.0); MEAN CORPUSCULAR HGB CONC 34.1 G/dL (31.0-37.0); MEAN CORPUSCULAR VOLUME 94 fL (80-100); MONOCYTES # (AUTO) 0.3 K/uL (0.1-1.0); NEUTROPHILS # (AUTO) 1.5 K/uL (1.8-7.7); NEUTROPHILS % (AUTO) 52.1 % (40.0-70.0); PLATELET COUNT (AUTO) 183 K/uL (150-450); RED BLOOD CELL COUNT(AUTO) 3.62 MIL/uL (4.00-5.20); RED CELL DISTRIBUTION WIDTH 15.3 % (11.5-14.5)
[2021-06-16 07:21] LABS: ALANINE AMINOTRANSFERASE 21 U/L (12-78); ALBUMIN 2.8 g/dL (3.4-5.0); ALKALINE PHOSPHATASE 47 U/L (46-116); ANION GAP 5 mmol/L (8-16); ASPARTATE AMINOTRANSFERASE 12 U/L (15-37); BILIRUBIN,TOTAL 0.2 mg/dL (0.1-1.0); CALCIUM, TOTAL 8.9 mg/dL (8.8-10.5); CARBON DIOXIDE 26 mmol/L (22-29); CHLORIDE 111 mmol/L (98-107); CREATININE 0.59 mg/dL (0.60-1.30); GLUCOSE,RANDOM 80 mg/dL (70-110); POTASSIUM 3.9 mmol/L (3.5-5.1); SODIUM SERUM 142 mmol/L (136-145); TOTAL PROTEIN, SERUM 6.2 g/dL (6.4-8.2); UREA NITROGEN, BLOOD 8 mg/dL (7-18)
[2021-06-16 07:25] LABS: GLOMERULAR FILTR. RATE CALC > 60 mL/min (>60)
[2021-06-16] MEDS: DIVALPROEX SODIUM 500 MG DR TABLET PO SCH ×2 (07:59→20:10)
[2021-06-16 08:06] VITALS: BP 101/59
[2021-06-16] MEDS: IBUPROFEN 600 MG TABLET PO PRN (08:07)
[2021-06-16 16:18] VITALS: BP 100/61
[2021-06-16] MEDS: OLANZapine 7.5 MG TABLET PO SCH (20:11)
[2021-06-16] MEDS: CEPHALEXIN MONOHYDRATE 500 MG CAPSULE PO SCH (20:11)
[2021-06-17 06:01] VITALS: BP 104/66
[2021-06-17] MEDS: DIVALPROEX SODIUM 500 MG DR TABLET PO SCH ×2 (08:04→20:05)
[2021-06-17] MEDS: CEPHALEXIN MONOHYDRATE 500 MG CAPSULE PO SCH ×2 (08:05→20:06)
[2021-06-17 09:07] VITALS: BP 90/68
[2021-06-17 10:20] VITALS: BP 106/74
[2021-06-17 16:45] VITALS: BP 92/58
[2021-06-17] MEDS: IBUPROFEN 600 MG TABLET PO PRN (17:26)
[2021-06-17] MEDS: OLANZapine 7.5 MG TABLET PO SCH (20:06)
[2021-06-17] MEDS ORDERED: DIVA-112 PO (23:08)
[2021-06-17] MEDS ORDERED: OLAN7.5T22 PO (23:08)
[2021-06-18 00:48] VITALS: BP 98/60
[2021-06-18] MEDS: DIVALPROEX SODIUM 500 MG DR TABLET PO SCH (08:00)
[2021-06-18] MEDS: CEPHALEXIN MONOHYDRATE 500 MG CAPSULE PO SCH (08:00)
[2021-06-18] MEDS: IBUPROFEN 600 MG TABLET PO PRN (08:02)
[2021-06-18 08:16] VITALS: BP 100/62
[2021-06-18] MEDS ORDERED: CEPH-558 PO (09:59)
== END 2021-06-18 12:50 | disposition home or self-care (01) | DRG 885 ==
LOC: B3A 21:08
PROVIDERS: ADMIT Psychiatry & Neurology Psychiatry; ATTEND Psychiatry & Neurology Psychiatry
DX: F31.9 Bipolar disorder, unspecified (principal); F12.10 Cannabis abuse, uncomplicated; F17.200 Nicotine dependence, unspecified, uncomplicated; Z20.822 Contact with and (suspected) exposure to COVID-19; F41.9 Anxiety disorder, unspecified; G47.00 Insomnia, unspecified; I10 Essential (primary) hypertension; Z72.89 Other problems related to lifestyle
CPT/HCPCS: 80053; 80061; 80164; 83036; 83735; 84100; 84443; 84481; 85025; 87081

== ENCOUNTER 2022-11-17 23:11 | Inpatient (IN) | payer MEDICARE, MEDICAID ==
[~2022-11-17] VITALS: Ht 165.1 cm; Wt 62.3 kg
[~2022-11-17 23:11] MED LIST changes: +CEPH-558 PO; +DIVA-112 PO; -OLAN5TAB52 PO; +OLAN7.5T22 PO; -TRAZ-252 PO
[2022-11-17] MEDS ORDERED: DiphenhydrAMINE HCL 50 MG/ML VIAL IM ONE (23:45)
[2022-11-17] MEDS ORDERED: LORazepam 2 MG/ML VIAL IM ONE (23:45)
[2022-11-17] MEDS ORDERED: HALOPERIDOL LACTATE 5 MG/ML VIAL IM ONE (23:45)
[2022-11-18 00:44] LABS: BASOPHILS % (AUTO) 0.9 % (0.0-2.0); EOSINOPHILS % (AUTO) 3.2 % (1.0-6.0); HEMATOCRIT 34.6 % (36-46); HEMOGLOBIN 11.6 g/dL (12.0-16.0); LYMPHOCYTES # (AUTO) 0.8 K/uL (1.0-4.8); LYMPHOCYTES % (AUTO) 23.3 % (22.0-44.0); MEAN CORPUSCULAR HEMOGLOBIN 32.3 pg (26.0-34.0); MEAN CORPUSCULAR HGB CONC 33.6 G/dL (31.0-37.0); MEAN CORPUSCULAR VOLUME 96 fL (80-100); MONOCYTES # (AUTO) 0.4 K/uL (0.1-1.0); NEUTROPHILS # (AUTO) 2.3 K/uL (1.8-7.7); NEUTROPHILS % (AUTO) 62.6 % (40.0-70.0); PLATELET COUNT (AUTO) 245 K/uL (150-450); RED CELL DISTRIBUTION WIDTH 14.9 % (11.5-14.5); WHITE BLOOD COUNT (AUTO) 3.6 K/uL (4.5-11.0)
[2022-11-18 00:55] LABS: ALCOHOL, BLOOD (SERUM) < 3 mg/dL (0-10)
[2022-11-18 00:57] LABS: ACETONE,BLOOD NEGATIVE (NEGATIVE)
[2022-11-18 00:59] LABS: ACETAMINOPHEN < 2 mcg/mL (10-30)
[2022-11-18 01:01] LABS: ALANINE AMINOTRANSFERASE 25 U/L (12-78); ALBUMIN 2.9 g/dL (3.4-5.0); ALKALINE PHOSPHATASE 76 U/L (46-116); ANION GAP 11 mmol/L (8-16); ASPARTATE AMINOTRANSFERASE 22 U/L (15-37); BILIRUBIN,TOTAL 0.9 mg/dL (0.1-1.0); CALCIUM, TOTAL 8.8 mg/dL (8.8-10.5); CARBON DIOXIDE 24 mmol/L (22-29); CHLORIDE 105 mmol/L (98-107); GLOMERULAR FILTR. RATE CALC > 60 mL/min (>60); GLUCOSE,RANDOM 120 mg/dL (70-110); SODIUM SERUM 140 mmol/L (136-145); UREA NITROGEN, BLOOD 10 mg/dL (7-18)
[2022-11-18 01:05] LABS: POTASSIUM 2.3 mmol/L (3.5-5.1)
[2022-11-18] MEDS ORDERED: POTASSIUM CHLORIDE 20 MEQ ER TABLET ONE (01:47)
[2022-11-18] MEDS: POTASSIUM CHLORIDE 10% 40 MEQ/30 ML LIQUID UDCUP PO ONE ×2 (01:52→02:04)
[2022-11-18] MEDS ORDERED: POTASSIUM CHLORIDE 20 MEQ ER TABLET PO ONE ×3 (02:00→09:45)
[2022-11-18] MEDS ORDERED: POTASSIUM CHLORIDE 10% 40 MEQ/30 ML LIQUID UDCUP PO ONE (02:45)
[2022-11-18 05:51] LABS: COVID AG,FIA SOURCE NASAL SWAB
[2022-11-18 06:10] LABS: SARS-COV2 (COVID) ANTIGEN,FIA Negative (Negative)
[2022-11-18] MEDS: HALOPERIDOL 5 MG TABLET PO PRN (08:08)
[2022-11-18] MEDS: LORazepam 2 MG TABLET PO PRN ×2 (08:08→21:06)
[2022-11-18 08:58] LABS: ANION GAP 7 mmol/L (8-16); CARBON DIOXIDE 27 mmol/L (22-29); CHLORIDE 109 mmol/L (98-107); CREATININE 0.81 mg/dL (0.60-1.30); GLUCOSE,RANDOM 187 mg/dL (70-110); SODIUM SERUM 143 mmol/L (136-145); UREA NITROGEN, BLOOD 6 mg/dL (7-18)
[2022-11-18 08:59] LABS: CALCIUM, TOTAL 8.7 mg/dL (8.8-10.5); GLOMERULAR FILTR. RATE CALC > 60 mL/min (>60)
[2022-11-18 09:03] LABS: POTASSIUM 2.9 mmol/L (3.5-5.1)
[2022-11-18 09:04] LABS: APPEARANCE,URINE HAZY (CLEAR); BILIRUBIN,URINE NEGATIVE (NEGATIVE); COLOR,URINE LIGHT YELLOW (YELLOW); GLUCOSE, URINE (UA) NEGATIVE (NEGATIVE); KETONES,URINE NEGATIVE (NEGATIVE); LEUKOCYTE ESTERASE ,URINE TRACE (NEGATIVE); NITRATE,URINE NEGATIVE (NEGATIVE); OCCULT BLOOD,URINE NEGATIVE (NEGATIVE); PH,URINE 7.5 (5.0-8.0); PROTEIN,URINE NEGATIVE (NEGATIVE); SPECIFIC GRAVITIY, URINE 1.008 (1.003-1.030); UROBILINOGEN,URINE <=1.0 mg/dL (<=1.0)
[2022-11-18 09:13] LABS: ALCOHOL, URINE DRUG SCREEN NEGATIVE (NEGATIVE); AMPHET/METH SCREEN,URINE NEGATIVE (NEGATIVE); BARBITURATE SCREEN, URINE NEGATIVE (NEGATIVE); BENZODIAZEPINES SCREEN,URINE NEGATIVE (NEGATIVE); CANNABINOID SCREEN,URINE NEGATIVE (NEGATIVE); COCAINE SCREEN,URINE NEGATIVE (NEGATIVE); METHADONE SCREEN, URINE NEGATIVE (NEGATIVE); OPIATE SCREEN,URINE NEGATIVE (NEGATIVE); PHENCYCLIDINE SCREEN,URINE NEGATIVE (NEGATIVE)
[2022-11-18 09:17] LABS: BACTERIA,URINE Few /HPF (None Seen); PH,URINE DRUG SCREEN 7.5 (5.0-8.0); RBC,URINE None Seen /HPF (0-2); SQUAMOUS EPITHELIAL CELL,UR Moderate /LPF (None Seen); WBC,URINE 0-2 /HPF (0-5)
[2022-11-18] MEDS: DIVALPROEX SODIUM 500 MG DR TABLET PO SCH ×2 (09:59→18:02)
[2022-11-18] MEDS: OLANZapine 10 MG TABLET PO SCH ×2 (09:59→21:05)
[2022-11-18] MEDS: ZOLPIDEM TARTRATE 10 MG TABLET PO PRN (21:06)
[2022-11-19 02:38] VITALS: RESP 18
[2022-11-19] MEDS ORDERED: PNEUMOCOCCAL VACCINE POLYVALENT 0.5 ML SYRINGE [PPSV23] IM. ONE (02:45)
[2022-11-19 08:46] VITALS: BP 140/76; PULSE 100; RESP 20; TEMP 97.5; O2SAT 98
[2022-11-19] MEDS: DIVALPROEX SODIUM 500 MG DR TABLET PO SCH ×2 (09:21→17:18)
[2022-11-19] MEDS: OLANZapine 10 MG TABLET PO SCH ×2 (09:21→20:35)
[2022-11-19] MEDS: LORazepam 2 MG TABLET PO PRN (09:21)
[2022-11-19] MEDS: HALOPERIDOL 5 MG TABLET PO PRN (09:21)
[2022-11-19 20:21] VITALS: RESP 19; TEMP 98.6
[2022-11-20 00:36] VITALS: RESP 17; TEMP 97.8; O2SAT 98
[2022-11-20 04:08] VITALS: RESP 18; TEMP 97.7; O2SAT 97
[2022-11-20 08:12] VITALS: BP 108/59; PULSE 83; RESP 18; TEMP 98.1
[2022-11-20] MEDS: OLANZapine 10 MG TABLET PO SCH ×2 (09:04→20:31)
[2022-11-20] MEDS: DIVALPROEX SODIUM 500 MG DR TABLET PO SCH ×2 (09:05→16:19)
[2022-11-20 11:27] LABS: COVID AG,FIA SOURCE NASAL SWAB
[2022-11-20 12:31] LABS: SARS-COV2 (COVID) ANTIGEN,FIA Negative (Negative)
[2022-11-20 12:43] VITALS: RESP 17; TEMP 98.3
[2022-11-20 16:30] VITALS: RESP 18; TEMP 98.1
[2022-11-20 20:03] VITALS: BP 119/75; PULSE 79; RESP 18; TEMP 97.8
[2022-11-20] MEDS: ZOLPIDEM TARTRATE 10 MG TABLET PO PRN (20:31)
[2022-11-21 01:20] VITALS: RESP 18
[2022-11-21 05:39] VITALS: RESP 18
[2022-11-21 08:15] VITALS: BP 100/60; PULSE 87; RESP 18; TEMP 98.1; O2SAT 100
[2022-11-21] MEDS: DIVALPROEX SODIUM 500 MG DR TABLET PO SCH ×2 (09:17→16:10)
[2022-11-21] MEDS: OLANZapine 10 MG TABLET PO SCH ×2 (09:17→21:05)
[2022-11-21 14:02] VITALS: RESP 18; TEMP 97.8
[2022-11-21 16:39] VITALS: RESP 18; TEMP 97.8
[2022-11-21 20:05] VITALS: BP 114/74; RESP 18; TEMP 97.6
[2022-11-22] VITALS (7 sets, daily range): BP systolic 102–109; BP diastolic 60–68; PULSE 79–90; RESP 18–19; TEMP 97.5–98.3; O2SAT 99–100
[2022-11-22] MEDS: DIVALPROEX SODIUM 500 MG DR TABLET PO SCH ×2 (08:04→16:17)
[2022-11-22] MEDS: OLANZapine 10 MG TABLET PO SCH ×2 (08:04→21:21)
[2022-11-22] MEDS ORDERED: MAGNESIUM HYDROXIDE SUSPENSION 30 ML UDCUP PO PRN (17:15)
[2022-11-22] MEDS ORDERED: DOCUSATE SODIUM 100 MG CAPSULE PO PRN (17:15)
[2022-11-22] MEDS ORDERED: ACETAMINOPHEN 325 MG TABLET PO PRN (17:15)
[2022-11-22] MEDS ORDERED: CloNIDine HCL 0.1 MG TABLET PO PRN (17:15)
[2022-11-22] MEDS ORDERED: PETROLATUM,WHITE 28 GM JELLY TP PRN (17:15)
[2022-11-22] MEDS ORDERED: NICOTINE 14 MG/24 HOUR PATCH TD PRN (17:15)
[2022-11-22] MEDS ORDERED: ALBUTEROL SULFATE HFA 90 MCG/PUFF 8 GM INHALER IH PRN (17:15)
[2022-11-22] MEDS ORDERED: ONDANSETRON HCL 4 MG TABLET PO PRN (17:15)
[2022-11-22] MEDS ORDERED: LOPERAMIDE HCL 2 MG CAPSULE PO PRN (17:15)
[2022-11-22] MEDS ORDERED: MAG HYDROX/AL HYDROX/SIMETH ES 30 ML SUSPENSION UDCUP PO PRN (17:15)
[2022-11-22] MEDS: IBUPROFEN 400 MG TABLET PO PRN (17:18)
[2022-11-22] MEDS: ZOLPIDEM TARTRATE 10 MG TABLET PO PRN (21:21)
[2022-11-23 00:08] VITALS: RESP 18
[2022-11-23 04:02] VITALS: RESP 18
[2022-11-23] MEDS: DIVALPROEX SODIUM 500 MG DR TABLET PO SCH ×2 (07:47→16:54)
[2022-11-23] MEDS: LORazepam 2 MG TABLET PO PRN (07:47)
[2022-11-23] MEDS: OLANZapine 10 MG TABLET PO SCH ×2 (07:47→20:05)
[2022-11-23 08:34] VITALS: BP 103/61; PULSE 89; RESP 18; TEMP 97.3; O2SAT 99
[2022-11-23 10:48] LABS: APPEARANCE,URINE CLEAR (CLEAR); BILIRUBIN,URINE NEGATIVE (NEGATIVE); COLOR,URINE LIGHT YELLOW (YELLOW); GLUCOSE, URINE (UA) NEGATIVE (NEGATIVE); KETONES,URINE NEGATIVE (NEGATIVE); LEUKOCYTE ESTERASE ,URINE NEGATIVE (NEGATIVE); NITRATE,URINE NEGATIVE (NEGATIVE); OCCULT BLOOD,URINE NEGATIVE (NEGATIVE); PROTEIN,URINE NEGATIVE (NEGATIVE); UROBILINOGEN,URINE <=1.0 mg/dL (<=1.0)
[2022-11-23 10:56] LABS: ALCOHOL, URINE DRUG SCREEN NEGATIVE (NEGATIVE); AMPHET/METH SCREEN,URINE NEGATIVE (NEGATIVE); BACTERIA,URINE None Seen /HPF (None Seen); BARBITURATE SCREEN, URINE NEGATIVE (NEGATIVE); BENZODIAZEPINES SCREEN,URINE NEGATIVE (NEGATIVE); CANNABINOID SCREEN,URINE NEGATIVE (NEGATIVE); COCAINE SCREEN,URINE NEGATIVE (NEGATIVE); METHADONE SCREEN, URINE NEGATIVE (NEGATIVE); OPIATE SCREEN,URINE NEGATIVE (NEGATIVE); PHENCYCLIDINE SCREEN,URINE NEGATIVE (NEGATIVE); RBC,URINE None Seen /HPF (0-2); WBC,URINE None Seen /HPF (0-5)
[2022-11-23 12:43] VITALS: RESP 17; TEMP 97.5
[2022-11-23 16:11] VITALS: RESP 17; TEMP 97.2
[2022-11-23 19:06] LABS: COVID AG,FIA SOURCE NASAL SWAB
[2022-11-23 19:21] LABS: SARS-COV2 (COVID) ANTIGEN,FIA Negative (Negative)
[2022-11-23 20:00] VITALS: BP 115/75; PULSE 73; RESP 19; TEMP 97; O2SAT 96
[2022-11-24] VITALS (7 sets, daily range): BP systolic 94–99; BP diastolic 56–65; PULSE 69–95; RESP 17–19; TEMP 97–97.9; O2SAT 95–97
[2022-11-24] MEDS: OLANZapine 10 MG TABLET PO SCH ×2 (08:30→20:01)
[2022-11-24] MEDS: DIVALPROEX SODIUM 500 MG DR TABLET PO SCH ×2 (08:30→16:45)
[2022-11-24] MEDS: IBUPROFEN 400 MG TABLET PO PRN (08:33)
[2022-11-25] VITALS: RESP 18; TEMP 97.8
[2022-11-25 04:00] VITALS: RESP 17
[2022-11-25 07:00] VITALS: BP 102/60; PULSE 70; RESP 18; TEMP 97.9
[2022-11-25] MEDS: IBUPROFEN 400 MG TABLET PO PRN (07:05)
[2022-11-25 08:06] VITALS: RESP 18
[2022-11-25] MEDS: OLANZapine 10 MG TABLET PO SCH ×2 (08:06→20:16)
[2022-11-25] MEDS: DIVALPROEX SODIUM 500 MG DR TABLET PO SCH ×2 (08:06→16:43)
[2022-11-25 13:10] VITALS: TEMP 98.2
[2022-11-25 17:31] VITALS: TEMP 98.5
[2022-11-26] MEDS: DIVALPROEX SODIUM 500 MG DR TABLET PO SCH ×2 (07:53→16:23)
[2022-11-26] MEDS: OLANZapine 10 MG TABLET PO SCH ×2 (07:53→20:44)
[2022-11-26] MEDS: IBUPROFEN 400 MG TABLET PO PRN (07:56)
[2022-11-26 08:21] VITALS: BP 100/61; PULSE 103; RESP 18; TEMP 98; O2SAT 98
[2022-11-26 12:24] VITALS: RESP 18; TEMP 97.8
[2022-11-26 16:24] VITALS: RESP 18; TEMP 98
[2022-11-26 21:21] VITALS: RESP 18
[2022-11-27 01:23] VITALS: RESP 17; TEMP 98.2
[2022-11-27 04:58] VITALS: RESP 18; TEMP 97.9
[2022-11-27 08:03] LABS: CHOL/HDL RATIO 2.2 (3.9-5.7); FREE T4 (FREE THYROXINE) 0.67 ng/dL (0.76-1.46)
[2022-11-27] MEDS: DIVALPROEX SODIUM 500 MG DR TABLET PO SCH ×2 (08:25→16:28)
[2022-11-27] MEDS: OLANZapine 10 MG TABLET PO SCH ×2 (08:25→20:47)
[2022-11-27 08:29] VITALS: BP 104/67; PULSE 93; RESP 18; TEMP 97.8; O2SAT 96
[2022-11-27] MEDS: GuaiFENesin/D-METHORPHAN [SUGAR-FREE] 200-20MG/10 ML SYRUP UDCUP PO PRN (09:24)
[2022-11-27 12:20] VITALS: RESP 18; TEMP 98.3
[2022-11-27] MEDS: IBUPROFEN 400 MG TABLET PO PRN (15:58)
[2022-11-27 16:20] VITALS: RESP 18; TEMP 97.9
[2022-11-27 20:20] VITALS: BP 143/88; PULSE 97; RESP 18; TEMP 97.4
[2022-11-28 05:31] VITALS: TEMP 97.6
[2022-11-28] MEDS: OLANZapine 10 MG TABLET PO SCH ×2 (08:01→21:09)
[2022-11-28] MEDS: DIVALPROEX SODIUM 500 MG DR TABLET PO SCH ×2 (08:01→16:09)
[2022-11-28 08:30] VITALS: BP 103/62; PULSE 70; RESP 18; TEMP 97.6; O2SAT 96
[2022-11-28] MEDS: IBUPROFEN 400 MG TABLET PO PRN (09:41)
[2022-11-28 13:06] VITALS: RESP 18; TEMP 98.2
[2022-11-28] MEDS: GuaiFENesin/D-METHORPHAN [SUGAR-FREE] 200-20MG/10 ML SYRUP UDCUP PO PRN (16:19)
[2022-11-28 16:32] VITALS: RESP 18; TEMP 98.4
[2022-11-28 20:15] VITALS: BP 147/84; PULSE 87; RESP 18; TEMP 97.9
[2022-11-29] VITALS (7 sets, daily range): BP systolic 98–99; BP diastolic 62–64; PULSE 87–97; RESP 17–18; TEMP 97–98.9; O2SAT 98
[2022-11-29] MEDS: ZOLPIDEM TARTRATE 10 MG TABLET PO PRN ×2 (02:47→21:04)
[2022-11-29] MEDS: DIVALPROEX SODIUM 500 MG DR TABLET PO SCH ×2 (08:46→16:15)
[2022-11-29] MEDS: OLANZapine 10 MG TABLET PO SCH ×2 (08:46→21:04)
[2022-11-29] MEDS: GuaiFENesin/D-METHORPHAN [SUGAR-FREE] 200-20MG/10 ML SYRUP UDCUP PO PRN (08:48)
[2022-11-29] MEDS: IBUPROFEN 400 MG TABLET PO PRN (08:50)
[2022-11-29 09:14] LABS: COVID AG,FIA SOURCE NASAL SWAB
[2022-11-29 10:15] LABS: SARS-COV2 (COVID) ANTIGEN,FIA Positive (Negative)
[2022-11-29] MEDS ORDERED: AZITHROMYCIN 500 MG TABLET PO SCH (17:00)
[2022-11-29] MEDS: DEXAMETHASONE 4 MG TABLET PO SCH (17:19)
[2022-11-30] VITALS (7 sets, daily range): BP systolic 101–109; BP diastolic 66–71; PULSE 78–82; RESP 17–19; TEMP 97.6–98.4; O2SAT 97
[2022-11-30] MEDS: LORazepam 2 MG TABLET PO PRN (05:34)
[2022-11-30] MEDS: IBUPROFEN 400 MG TABLET PO PRN (05:34)
[2022-11-30] MEDS: DIVALPROEX SODIUM 500 MG DR TABLET PO SCH ×2 (08:41→16:44)
[2022-11-30] MEDS: DEXAMETHASONE 4 MG TABLET PO SCH (08:42)
[2022-11-30] MEDS: AZITHROMYCIN 500 MG TABLET PO SCH (08:42)
[2022-11-30] MEDS: OLANZapine 10 MG TABLET PO SCH ×2 (08:43→21:14)
[2022-12-01] VITALS (7 sets, daily range): BP systolic 101–106; BP diastolic 60–65; PULSE 80–90; RESP 16–18; TEMP 97.6–98.4; O2SAT 96
[2022-12-01] MEDS: IBUPROFEN 400 MG TABLET PO PRN (05:00)
[2022-12-01] MEDS: OLANZapine 10 MG TABLET PO SCH ×2 (08:09→20:36)
[2022-12-01] MEDS: AZITHROMYCIN 500 MG TABLET PO SCH (08:09)
[2022-12-01] MEDS: DIVALPROEX SODIUM 500 MG DR TABLET PO SCH ×2 (08:09→16:30)
[2022-12-01] MEDS: DEXAMETHASONE 4 MG TABLET PO SCH (08:10)
[2022-12-02] VITALS (9 sets, daily range): BP systolic 102–111; BP diastolic 59–83; PULSE 73–84; RESP 16–18; TEMP 97.6–98; O2SAT 97
[2022-12-02] MEDS: IBUPROFEN 400 MG TABLET PO PRN ×2 (06:41→15:52)
[2022-12-02] MEDS: AZITHROMYCIN 500 MG TABLET PO SCH (08:13)
[2022-12-02] MEDS: OLANZapine 10 MG TABLET PO SCH ×2 (08:13→20:31)
[2022-12-02] MEDS: DEXAMETHASONE 4 MG TABLET PO SCH (08:13)
[2022-12-02] MEDS: DIVALPROEX SODIUM 500 MG DR TABLET PO SCH ×2 (08:13→16:38)
[2022-12-02] MEDS: ZOLPIDEM TARTRATE 10 MG TABLET PO PRN (20:31)
[2022-12-03 00:07] VITALS: RESP 18
[2022-12-03 04:11] VITALS: RESP 18
[2022-12-03] MEDS: OLANZapine 10 MG TABLET PO SCH ×2 (08:56→21:08)
[2022-12-03] MEDS: DIVALPROEX SODIUM 500 MG DR TABLET PO SCH ×2 (08:56→16:27)
[2022-12-03] MEDS: AZITHROMYCIN 500 MG TABLET PO SCH (08:56)
[2022-12-03] MEDS: DEXAMETHASONE 4 MG TABLET PO SCH (08:57)
[2022-12-03 09:24] VITALS: BP 84/55; PULSE 75; RESP 16; TEMP 98.6; O2SAT 100
[2022-12-03 12:45] VITALS: TEMP 98.5
[2022-12-03 16:41] VITALS: TEMP 98.3
[2022-12-03 20:09] VITALS: BP 90/60; PULSE 70; RESP 17; TEMP 97.9; O2SAT 98
[2022-12-03] MEDS: ZOLPIDEM TARTRATE 10 MG TABLET PO PRN (21:08)
[2022-12-04] VITALS (7 sets, daily range): BP systolic 108–115; BP diastolic 69–72; PULSE 75–81; RESP 16–18; TEMP 97.6–98; O2SAT 97
[2022-12-04] MEDS: OLANZapine 10 MG TABLET PO SCH ×2 (08:21→20:21)
[2022-12-04] MEDS: DIVALPROEX SODIUM 500 MG DR TABLET PO SCH ×2 (08:21→16:53)
[2022-12-04] MEDS: DEXAMETHASONE 4 MG TABLET PO SCH (08:21)
[2022-12-04] MEDS: AZITHROMYCIN 500 MG TABLET PO SCH (08:21)
[2022-12-04] MEDS: IBUPROFEN 400 MG TABLET PO PRN (08:21)
[2022-12-04 15:40] LABS: COVID AG,FIA SOURCE NASAL SWAB
[2022-12-04 16:18] LABS: SARS-COV2 (COVID) ANTIGEN,FIA Negative (Negative)
[2022-12-04] MEDS: ZOLPIDEM TARTRATE 10 MG TABLET PO PRN (21:17)
[2022-12-05] VITALS (7 sets, daily range): BP systolic 91–108; BP diastolic 55–66; PULSE 59–78; RESP 16–18; TEMP 97.6–99; O2SAT 97–98
[2022-12-05] MEDS: OLANZapine 10 MG TABLET PO SCH ×2 (08:08→21:02)
[2022-12-05] MEDS: DIVALPROEX SODIUM 500 MG DR TABLET PO SCH ×2 (08:08→16:32)
[2022-12-05] MEDS: AZITHROMYCIN 500 MG TABLET PO SCH (08:08)
[2022-12-05] MEDS: DEXAMETHASONE 4 MG TABLET PO SCH (08:09)
[2022-12-05] MEDS: IBUPROFEN 400 MG TABLET PO PRN ×2 (08:10→17:10)
[2022-12-05] MEDS: ZOLPIDEM TARTRATE 10 MG TABLET PO PRN (21:03)
[2022-12-06] VITALS (7 sets, daily range): BP systolic 110–115; BP diastolic 70–80; PULSE 85–94; RESP 18–19; TEMP 97.1–98; O2SAT 97–98
[2022-12-06] MEDS: IBUPROFEN 400 MG TABLET PO PRN (06:02)
[2022-12-06] MEDS: DEXAMETHASONE 4 MG TABLET PO SCH (08:21)
[2022-12-06] MEDS: DIVALPROEX SODIUM 500 MG DR TABLET PO SCH ×2 (08:21→16:29)
[2022-12-06] MEDS: OLANZapine 10 MG TABLET PO SCH ×2 (08:21→20:35)
[2022-12-06] MEDS: ZOLPIDEM TARTRATE 10 MG TABLET PO PRN (21:00)
[2022-12-07 00:48] VITALS: RESP 17; TEMP 97.7
[2022-12-07 05:21] VITALS: RESP 17; TEMP 97.9
[2022-12-07 08:30] VITALS: BP 112/65; PULSE 82; RESP 18; TEMP 98.2; O2SAT 99
[2022-12-07] MEDS: DEXAMETHASONE 4 MG TABLET PO SCH (08:30)
[2022-12-07] MEDS: OLANZapine 10 MG TABLET PO SCH (08:30)
[2022-12-07] MEDS: DIVALPROEX SODIUM 500 MG DR TABLET PO SCH (08:30)
== END 2022-12-07 11:55 | disposition home or self-care (01) | DRG 885 ==
LOC: EMS 23:12 → 3EC 11-18 06:03
PROVIDERS: ADMIT Psychiatry & Neurology Child & Adolescent Psychiatry; ATTEND Psychiatry & Neurology Child & Adolescent Psychiatry
DX: F25.0 Schizoaffective disorder, bipolar type (principal); U07.1 COVID-19; E87.6 Hypokalemia; D64.9 Anemia, unspecified; E11.9 Type 2 diabetes mellitus without complications; I10 Essential (primary) hypertension; F17.200 Nicotine dependence, unspecified, uncomplicated; F43.10 Post-traumatic stress disorder, unspecified
CPT/HCPCS: 80048; 80053; 80061; 80164; 80307; 81001; 82009; 83036; 83735; 84132; 84439; 84481; 84703; 85025; 99291; G0480; G0481; J1200; J1630; J2060; J8540; Q9967